=== PATIENT | male | born 1980 | race Caucasian/White ===

== ENCOUNTER → 2016-11-08 | Outpatient (CLI) | payer OTHER | LOC: RAD 08:03 | PROVIDERS: ATTEND Physician Assistant | DX: M23.52 Chronic instability of knee, left knee (principal); M23.51 Chronic instability of knee, right knee ==

== ENCOUNTER 2018-05-08 23:05 | Emergency (ER) | payer OTHER ==
[2018-05-08 23:16] VITALS: BP 144/98
== END 2018-05-09 00:10 | disposition left against medical advice (07) ==
LOC: ER 23:05
DX: Z53.21 Procedure and treatment not carried out due to patient leaving prior to being seen by health care provider (principal)

== ENCOUNTER 2019-03-03 22:28 | Emergency (ER) ==
[2019-03-03 22:54] VITALS: BP 148/93
== END 2019-03-03 23:27 | disposition left against medical advice (07) ==
LOC: ER 22:28
DX: Z53.21 Procedure and treatment not carried out due to patient leaving prior to being seen by health care provider (principal)

== ENCOUNTER 2019-03-06 21:40 | Emergency (ER) | payer OTHER ==
[2019-03-06 22:34] LABS: ABSOLUTE BASOPHILS # (AUTO) 0.1 10^3/uL (0.0-0.2); ABSOLUTE EOSINOPHILS # (AUTO) 0.3 10^3/uL (0.0-0.6); ABSOLUTE LYMPHOCYTES (AUTO) 2.3 10^3/uL (0.5-4.7); ABSOLUTE MONOCYTES (AUTO) 0.7 10^3/uL (0.1-1.4); ABSOLUTE NEUT (AUTO) 4.2 10^3/uL (1.7-8.2); BASOPHILS % (AUTO) 1.2 % (0-2); EOSINOPHILS % (AUTO) 3.4 % (0-6); HEMATOCRIT 44.2 % (37.9-51.0); HEMOGLOBIN 15.4 g/dL (13.5-17.0); LYMPHOCYTES % (AUTO) 30.8 % (13-45); MEAN CORPUSCULAR HEMOGLOBIN 29.5 pg (27.0-33.4); MEAN CORPUSCULAR HGB CONC 34.7 g/dL (32.0-36.0); MEAN CORPUSCULAR VOLUME 85 fl (80-97); MONOCYTES % (AUTO) 8.6 % (3-13); PLATELET COUNT 298 10^3/uL (150-450); RED BLOOD COUNT 5.21 10^6/uL (4.35-5.55); RED CELL DISTRIBUTION WIDTH 13.1 % (11.5-14.0); TOTAL CELLS COUNTED % (AUTO) 100 %; WHITE BLOOD COUNT 7.5 10^3/uL (4.0-10.5)
[2019-03-06 22:38] LABS: APPEARANCE,URINE SLIGHTLY-CLOUDY; BILIRUBIN,URINE NEGATIVE (NEGATIVE); COLOR,URINE YELLOW; GLUCOSE, URINE NEGATIVE (NEGATIVE); KETONES,URINE NEGATIVE (NEGATIVE); LEUKOCYTE ESTERASE,URINE NEGATIVE (NEGATIVE); NITRITE,URINE NEGATIVE (NEGATIVE); PROTEIN,URINE NEGATIVE (NEGATIVE); URINE SPECIFIC GRAVITY 1.023; UROBILINOGEN,URINE NEGATIVE mg/dL (<2.0)
[2019-03-06 22:52] LABS: ALANINE AMINOTRANSFERASE 33 U/L (21-72); ALBUMIN 4.9 g/dL (3.5-5.0); ALKALINE PHOSPHATASE 69 U/L (38-126); ANION GAP 12 (5-19); ASPARTATE AMINO TRANSFERASE 28 U/L (17-59); BILIRUBIN,DIRECT 0.4 mg/dL (0.0-0.4); BILIRUBIN,TOTAL 0.8 mg/dL (0.2-1.3); BLOOD UREA NITROGEN 20 mg/dL (7-20); CALCIUM 10.3 mg/dL (8.4-10.2); CARBON DIOXIDE 27 mmol/L (22-30); CHLORIDE 101 mmol/L (98-107); GLUCOSE 95 mg/dL (75-110); POTASSIUM 4.6 mmol/L (3.6-5.0); SODIUM 139.9 mmol/L (137-145); TOTAL PROTEIN 8.2 g/dL (6.3-8.2)
[2019-03-07] MEDS ORDERED: KETOROLAC TROMETHAMINE 60 MG/2 ML SDV IM ONE (01:51)
[2019-03-07] MEDS ORDERED: LIDOCAINE 5% (700 MG) TRANSDERMAL ADH..PATCH TP ONE (01:51)
--- NOTE | 2019-03-07 01:52 | ER Document Report ---
ED General - General Chief Complaint: Low Back Pain Stated Complaint: Right low back pain Time Seen by Provider: 03/06/19 23:50 Primary Care Provider: ODILIA,LISA [Primary Care Provider] - Follow up as needed Notes: Patient is a 38-year-old male with a past medical history of chronic low back pain who presents with an exacerbation of his low back pain. Patient describes the pain as being a throbbing, constant, severe pain to his right low back that radiates into his right buttock and down his right leg. The pain into his right leg is a shooting, burning pain. Regards the pain is being severe. Worsened by standing or walking. Has been taking Percocet and ibuprofen with minimal improvement of the pain. Has seen his primary care doctor regarding this issue and is scheduled to have additional imaging in the coming weeks. He denies any bowel or bladder incontinence, urinary retention, inability to ambulate, focal weakness, numbness, or loss of sensation. Nothing is new or different regarding the pain tonight except he states he feels like he could not get under control with his normal medications. Denies fever, history of IV drug use or history of malignancy. TRAVEL OUTSIDE OF THE [place] IN LAST 30 DAYS: No - Related Data Allergies/Adverse Reactions: tramadol Allergy (Verified 03/06/19 21:45) Seizures Fresh Fruit Allergy (Severe, Uncoded 03/06/19 21:45) Anaphylaxis Past Medical History - General Information source: Patient - Social History Smoking Status: Never Smoker Frequency of alcohol use: None Drug Abuse: None Lives with: Spouse/Significant other Family History: Arthritis, Hypertension, Malignancy Patient has suicidal ideation: No Patient has homicidal ideation: No Renal/ Medical History: Denies: Hx Peritoneal Dialysis GI Medical History: Reports: Hx Gastroesophageal Reflux Disease Musculoskeletal Medical History: Reports Hx Arthritis, Reports Hx Musculoskeletal Deformity, Reports Hx Musculoskeletal Trauma Past Surgical History: Reports: Hx Appendectomy, Hx Orthopedic Surgery - left shoulder - Immunizations Immunizations up to date: Yes Hx Diphtheria, Pertussis, Tetanus Vaccination: Yes Review of Systems - Review of Systems Notes: Constitutional: Negative for fever. HENT: Negative for sore throat. Eyes: Negative for visual changes. Cardiovascular: Negative for chest pain. Respiratory: Negative for shortness of breath. Gastrointestinal: Negative for abdominal pain, vomiting or diarrhea. Genitourinary: Negative for dysuria. Musculoskeletal: Positive for low back pain, right leg pain Skin: Negative for rash. Neurological: Negative for headaches, weakness or numbness. 10 point ROS negative except as marked above and in HPI. Physical Exam - Vital signs Vitals: Temp Pulse Resp BP Pulse Ox 98.0 F 76 20 148/105 H 97 03/06/19 22:05 03/06/19 22:05 03/06/19 22:05 03/06/19 22:05 03/06/19 22:05 Interpretation: Hypertensive Notes: PHYSICAL EXAMINATION: GENERAL: Well-appearing, well-nourished and in no acute distress. HEAD: Atraumatic, normocephalic. EYES: Pupils equal round and reactive to light, extraocular movements intact, sclera anicteric, conjunctiva are normal. ENT: nares patent, oropharynx clear without exudates. Moist mucous membranes. NECK: Normal range of motion, supple without lymphadenopathy LUNGS: Breath sounds clear to auscultation bilaterally and equal. No wheezes rales or rhonchi. HEART: Regular rate and rhythm without murmurs ABDOMEN: Soft, nontender, normoactive bowel sounds. No guarding, no rebound. No masses appreciated. EXTREMITIES: Normal range of motion, no pitting or edema. No cyanosis. Back: No midline spinal tenderness, step-offs or deformities. Pain on palpation of the paraspinous muscles on the right low back NEUROLOGICAL: 5 out of 5 strength both distally and proximally bilateral lower extremities. 2+ patellar reflexes bilaterally. No clonus. Sensation grossly intact in the bilateral lower extremities. Patient is able to ambulate without difficulty. PSYCH: Normal mood, normal affect. SKIN: Warm, Dry, normal turgor, no rashes or lesions noted. Course - Re-evaluation Re-evalutation: 03/07/19 01:51 Presentation of a well appearing patient complaining of acute on chronic back pain with sciatica into the right lower extremity. No rapid progression of symptoms, systemic symptoms including fevers, chills, weight loss, history of recent bacterial infection, bilateral symptoms, numbness, weakness, difficulty walking, urinary retention or bowel incontinence, personal history of cancer, immunosuppression, diabetes, known AAA, or history of IV drug use. Exam is without point tenderness over vertebral bodies, pulsatile abdominal mass, and patient has symmetric and intact lower extremity strength, sensation, and reflexes without clonus. 2+ symmetric medial malleolar and dorsalis pedis pulses Based on history and physical, I have a very low suspicion of a concerning etiology of pain including epidural compression syndrome, spinal infection, transverse myelitis, malignancy, abdominal aortic aneurysm, renal colic, acute lower extremity claudication, neurogenic claudication, ankylosing spondylitis, or other intra-abdominal process. Due to absence of concerning risk factors in history and physical as well as absence of rapidly progressive, severe, or bilateral symptoms, will defer imaging at this point. Plan to manage conservatively with outpatient analgesia, analgesia, and physical therapy. - Acetaminophen 650 q 4 + ibuprofen 600 q 6 - Continue normal daily activities as tolerated by pain - Provide with standard musculoskeletal back pain exercise instructions - Instruct to follow up with primary care provider if symptoms not improving - Provide careful return precautions and concerning symptoms to watch for. - Vital Signs Vital signs: Temp Pulse Resp BP Pulse Ox 97.5 F 58 L 17 167/95 H 97 03/07/19 02:22 03/07/19 02:22 03/07/19 02:22 03/07/19 02:22 03/07/19 02:22 - Laboratory Result Diagrams: 03/06/19 22:16 03/06/19 22:16 Laboratory results interpreted by me: 03/06/19 22:16 Calcium 10.3 H Discharge - Discharge Clinical Impression: Right low back pain Qualifiers: Chronicity: chronic Sciatica presence: with sciatica Sciatica laterality: sciatica of right side Qualified Code(s): M54.41 - Lumbago with sciatica, right side Condition: Good Disposition: HOME, SELF-CARE Additional Instructions: You have been seen in the Emergency Department (ED) today for back pain. Your workup and exam have not shown any acute abnormalities and you are likely suffering from muscle strain or possible problems with your discs, but there is no treatment that will fix your symptoms at this time. Please continue to take the medications that you have available at home as prescribed. You should also purchase a local lidocaine cream such as "aspercreme with lidocaine" and use per bottle instructions to the affected area. Apply heat to the area as often as you are able. Continue to keep active and avoid prolonged periods of bed rest. Please follow up with your doctor as soon as possible regarding today's ED visit and your back pain. Return to the ED for worsening back pain, fever, weakness or numbness of either leg, or if you develop either (1) an inability to urinate or have bowel movements, or (2) loss of your ability to control your bathroom functions (if you start having "accidents"), or if you develop other new symptoms that concern you.concern you. Referrals: [facility] [Primary Care Provider] - Follow up as needed
[2019-03-07 02:23] VITALS: BP 167/95
== END 2019-03-07 02:23 | disposition home or self-care (01) ==
LOC: ER 21:40
DX: M54.41 Lumbago with sciatica, right side (principal)
CPT/HCPCS: 99283; 96372; 36415; 83690; 85025; 80053; 81001; J1885

== ENCOUNTER 2020-09-21 07:07 | Emergency (ER) | payer OTHER ==
[2020-09-21 09:12] LABS: ABSOLUTE BASOPHILS # (AUTO) 0.1 10^3/uL (0.0-0.2); ABSOLUTE EOSINOPHILS # (AUTO) 0.3 10^3/uL (0.0-0.6); ABSOLUTE LYMPHOCYTES (AUTO) 1.4 10^3/uL (0.5-4.7); ABSOLUTE MONOCYTES (AUTO) 0.5 10^3/uL (0.1-1.4); ABSOLUTE NEUT (AUTO) 4.2 10^3/uL (1.7-8.2); BASOPHILS % (AUTO) 1.2 % (0-2); HEMATOCRIT 41.9 % (37.9-51.0); HEMOGLOBIN 14.3 g/dL (13.5-17.0); LYMPHOCYTES % (AUTO) 21.5 % (13-45); MEAN CORPUSCULAR HEMOGLOBIN 29.4 pg (27.0-33.4); MEAN CORPUSCULAR HGB CONC 34.2 g/dL (32.0-36.0); MEAN CORPUSCULAR VOLUME 86 fl (80-97); MONOCYTES % (AUTO) 7.9 % (3-13); PLATELET COUNT 273 10^3/uL (150-450); RED BLOOD COUNT 4.88 10^6/uL (4.35-5.55); RED CELL DISTRIBUTION WIDTH 13.7 % (11.5-14.0); SEGMENTED NEUTROPHILS % (AUTO) 65.4 % (42-78); TOTAL CELLS COUNTED % (AUTO) 100 %; WHITE BLOOD COUNT 6.5 10^3/uL (4.0-10.5)
[2020-09-21 09:28] LABS: ANION GAP 6 (5-19)
[2020-09-21 09:35] LABS: ALBUMIN 4.4 g/dL (3.5-5.0); ALKALINE PHOSPHATASE 69 U/L (38-126); ASPARTATE AMINO TRANSFERASE 35 U/L (17-59); BILIRUBIN,DIRECT 0.1 mg/dL (0.0-0.4); BILIRUBIN,TOTAL 0.7 mg/dL (0.2-1.3); BLOOD UREA NITROGEN 19 mg/dL (7-20); CALCIUM 9.8 mg/dL (8.4-10.2); CARBON DIOXIDE 31 mmol/L (22-30); CHLORIDE 102 mmol/L (98-107); GLUCOSE 100 mg/dL (75-110); POTASSIUM 4.6 mmol/L (3.6-5.0); TOTAL PROTEIN 7.7 g/dL (6.3-8.2)
[2020-09-21] MEDS ORDERED: ONDANSETRON HCL INJ/PF 4 MG/2 ML SDV IV ONE (10:16)
[2020-09-21] MEDS ORDERED: MORPHINE SULFATE 10 MG/ML INJ IV ONE (10:16)
[2020-09-21] MEDS ORDERED: KETOROLAC TROMETHAMINE INJ/PF 30 MG/1 ML SDV IV ONE (10:17)
--- NOTE | 2020-09-21 10:24 | ER Document Report ---
ED Fall - General Chief Complaint: Fall Injury Stated Complaint: FALL/BACK PAIN Time Seen by Provider: 09/21/20 10:05 Primary Care Provider: LIA MYERS MD [Primary Care Provider] - Follow up as needed Mode of Arrival: Ambulatory Information source: Patient, Relative Notes: Patient is a 39-year-old male comes emergency room complaining of low back pain after sustaining a slip and fall at home around 530 this morning. Patient states he missed a step and fell backwards landing on his back on the lip of a step. He complains of pain in the left lower back off to the side of the spinal column. Patient denies any other injuries. He has no loss of consciousness or head trauma. Patient was ambulatory afterwards. He has a history of back fusion 3 years ago. He denies any loss of urine or stool. After surgery patient states he did lose some sensation in the right leg but it was minimal. And he only takes psych medications for depression. Patient does not smoke. Patient does take 5 mg of Percocet for his back on a regular basis but has not taken any today. TRAVEL OUTSIDE OF THE [place] IN LAST 30 DAYS: No - HPI Occurred: This morning Where: Home Context: Slipped, Fell from standing Associated symptoms: None Location of injury/pain: Back Quality of pain: Achy, Sharp Severity: Moderate Pain Level: 3 - Related data Allergies/Adverse Reactions: tramadol Allergy (Verified 03/06/19 21:45) Seizures Fresh Fruit Allergy (Severe, Uncoded 03/06/19 21:45) Anaphylaxis Past Medical History - General Information source: Patient - Social History Smoking Status: Never Smoker Chew tobacco use (# tins/day): No Frequency of alcohol use: None Drug Abuse: None Lives with: Family Family History: Arthritis, Hypertension, Malignancy Renal/ Medical History: Denies: Hx Peritoneal Dialysis GI Medical History: Reports: Hx Gastroesophageal Reflux Disease Musculoskeletal Medical History: Reports Hx Arthritis, Reports Hx Musculoskeletal Deformity, Reports Hx Musculoskeletal Trauma Past Surgical History: Reports: Hx Appendectomy, Hx Orthopedic Surgery - left shoulder - Immunizations Immunizations up to date: Yes Hx Diphtheria, Pertussis, Tetanus Vaccination: Yes Review of Systems - Review of Systems Constitutional: No symptoms reported EENT: No symptoms reported Cardiovascular: No symptoms reported Respiratory: No symptoms reported Gastrointestinal: No symptoms reported Genitourinary: No symptoms reported Male Genitourinary: No symptoms reported Musculoskeletal: See HPI, Back pain Skin: No symptoms reported Hematologic/Lymphatic: No symptoms reported Neurological/Psychological: No symptoms reported -: Yes All other systems reviewed and negative Physical Exam - Vital signs Vitals: Temp Pulse Resp BP Pulse Ox 97.7 F 61 20 132/73 H 95 09/21/20 07:13 09/21/20 07:13 09/21/20 07:13 09/21/20 07:13 09/21/20 07:13 Interpretation: Hypertensive - Notes Notes: PHYSICAL EXAMINATION: GENERAL: Patient is well-nourished well-developed 39-year-old male no apparent distress but does appear somewhat uncomfortable. HEAD: Atraumatic, normocephalic. EYES: Pupils equal round and reactive to light, extraocular movements intact, sclera anicteric, conjunctiva are normal. ENT: Nares patent, oropharynx clear without exudates. Moist mucous membranes. NECK: Normal range of motion, supple without lymphadenopathy LUNGS: Breath sounds clear to auscultation bilaterally and equal. No wheezes rales or rhonchi. HEART: Regular rate and rhythm without murmurs ABDOMEN: Soft, nontender, nondistended abdomen. No guarding, no rebound. No masses appreciated. Musculoskeletal: Examination of patient's area concern is his low back. Visualization of the area does not show any signs of ecchymosis or abrasion at this time. Patient has mild tenderness to palpation on the right lateral side of the lumbar spine area. There is no tenderness to palpation on the spine itself. As stated there is no discoloration. Further evaluation shows patient has positive straight leg raise on the right to about 5 degrees and also has loss of strength when raising the leg against gravity on his own. 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 The left side is much improved on from the right however he still has some discomfort and pain on the right side when he lifts his left leg. Further evaluation shows patient sensation is slightly decreased on his right side although he does state that he has not had a loss of sensation before and does not appear to be any new onset of worsening of that problem. DTRs in a sitting position shows normal at this time. Vascular examination also shows good distal dorsalis pedal pulses and posterior tibial pulses as well as good femoral pulses. There is no sign of saddle paresthesia out of the unusual for him. Unable to fully examine patient's walk secondary to discomfort. NEUROLOGICAL: Normal speech, normal gait. Normal sensory, motor exams PSYCH: Normal mood, normal affect. SKIN: Warm, Dry, normal turgor, no rashes or lesions noted. Course - Re-evaluation Re-evalutation: 09/21/20 13:01 Reexamination shows patient's still has the same sensation he did when he first came in. Slight decrease on the right side however that is his baseline according to patient. Patient CT does show that he has acute minimally displaced fractures of the right L2 and L3 transverse processes. There is no acute fracture or dislocation of the lumbar spine and he has had decompressive laminectomy at L4 no significant spinal stenosis noted. Given that I did discuss the case with Dr. Collazo and he agrees that this tends patient is already in pain management ice down the area anti-inflammatories will also help with the discomfort and pain and is to follow-up with his surgeon that did the laminectomy. Patient informs me this is the [facility] so he will contact them first thing Tuesday morning. He did get relief with the morphine and the Toradol. Currently is taking Percocet 5 on a as needed basis and he will continue with that as previously ordered by pain management. - Vital Signs Vital signs: Temp Pulse Resp BP Pulse Ox 97.7 F 61 20 132/73 H 95 09/21/20 07:13 09/21/20 07:13 09/21/20 07:13 09/21/20 07:13 09/21/20 07:13 - Laboratory Results Result Diagrams: 09/21/20 08:55 09/21/20 08:55 Laboratory Results Interpreted: 09/21/20 08:55 Carbon Dioxide 31 H Critical Laboratory Results Reviewed: No Critical Results - Radiology Results Critical Radiology Results Reviewed: Yes Attending or Supervising Physician who Reviewed Radiology: MIREYA COLLAZO - Transverse process fracture Discharge - Discharge Clinical Impression: Multiple transverse process fractures Back pain Qualifiers: Back pain location: low back pain Chronicity: acute Back pain laterality: right Sciatica presence: without sciatica Qualified Code(s): M54.5 - Low back pain Condition: Stable Disposition: HOME, SELF-CARE Instructions: Transverse Process Fracture ([facility]) Additional Instructions: As we discussed you do have an surgeon at the [place] you can contact them tomorrow to inform them of the findings have given you a copy of your CT report you can take ibuprofen 800 mg 3 times a day and continue your pain medication as prescribed by your doctor. Ice is your best friend for the next 48 hours. As we discussed do not sit in a whirlpool or use a heating pad least for 72 hours. You can take a shower this will not bother it. Should you have any concerns or problems or should you have any loss of urine or stool or other concerns you can return to ER for reevaluation. Prescriptions: Methocarbamol [Robaxin 750 mg Tablet] 750 mg PO ASDIR PRN #30 tablet PRN Reason: Forms: Elevated Blood Pressure, Return to Work Referrals: LIA MYERS MD [Primary Care Provider] - Follow up as needed
[2020-09-21 12:08] LABS: APPEARANCE,URINE CLEAR; BILIRUBIN,URINE NEGATIVE (NEGATIVE); COLOR,URINE YELLOW; GLUCOSE, URINE NEGATIVE (NEGATIVE); KETONES,URINE NEGATIVE (NEGATIVE); LEUKOCYTE ESTERASE,URINE NEGATIVE (NEGATIVE); NITRITE,URINE NEGATIVE (NEGATIVE); PROTEIN,URINE NEGATIVE (NEGATIVE); URINE SPECIFIC GRAVITY 1.011; UROBILINOGEN,URINE NEGATIVE mg/dL (<2.0)
--- NOTE | 2020-09-21 12:32 | RADIOLOGY REPORT (SQ) ---
EXAM DESCRIPTION: CT LUMBAR SPINE WITHOUT IMAGES COMPLETED DATE/TIME: 09/21/2020 10:59 am REASON FOR STUDY: back pain COMPARISON: Lumbar spine radiograph, 02/18/2016. MRI lumbar spine, 03/31/2015. TECHNIQUE: Axial images acquired through the lumbar spine without intravenous contrast. Images revi ewed with lung, soft tissue and bone windows. Reconstructed coronal and sagittal MPR images reviewed . All images stored on PACS. All CT scanners at this facility use dose modulation, iterative reconstruction, and/or weight based d osing when appropriate to reduce radiation dose to as low as reasonably achievable (ALARA). [facility]: Dose Right [facility]: CareDose [facility]: Dose Right [facility]: Teradose 4D [facility]: [employer] RADIATION DOSE: CT Rad equipment meets quality standard of care and radiation dose reduction techniq ues were employed. CTDIvol: 36.2 mGy. DLP: 1425 mGy-cm. mGy. LIMITATIONS: None. FINDINGS: SEGMENTATION: Lumbarization of the S1 segment. ALIGNMENT: Normal. VERTEBRAL BODIES: No vertebral body fracture or loss of vertebral body height. No lytic or blastic b one lesion. Small subchondral cysts at the superior endplate L5 consistent with chronic degenerative change, stable. DISCS: Mild degenerative disc disease with mild loss of intervertebral disc height. Calcification of the disc annulus at L4-L5. Decompressive laminectomy at L4-5. PEDICLES, TRANSVERSE PROCESSES: There are acute fractures of the right L2 and L3 transverse processes . No significant displacement. FACETS, POSTERIOR ELEMENTS: Laminectomy at L4. No acute fracture. Pedicles are intact. No displace ment. HARDWARE: None in the spine. VISUALIZED RIBS: No fractures. SOFT TISSUES: No significant or acute finding in adjacent soft tissues. OTHER: No other significant finding. IMPRESSION: 1. Acute minimally displaced fractures of the right L2 and L3 transverse processes. 2. No acute fracture or dislocation of the lumbar spine. 3. Decompressive laminectomy at L4. No significant spinal canal stenosis. TECHNICAL DOCUMENTATION: JOB ID: [id number] Quality ID # [id number]: Final reports with documentation of one or more dose reduction techniques (e.g., Au tomated exposure control, adjustment of the mA and/or kV according to patient size, use of iterative reconstruction technique) 2010 [employer]- All Rights Reserved Reading location - IP/workstation name: [email or web address]
[2020-09-21 13:34] VITALS: BP 141/91
== END 2020-09-21 13:34 | disposition home or self-care (01) ==
LOC: ER 07:07
DX: S32.028A Other fracture of second lumbar vertebra, initial encounter for closed fracture (principal); S32.038A Other fracture of third lumbar vertebra, initial encounter for closed fracture; Y92.008 Other place in unspecified non-institutional (private) residence as the place of occurrence of the external cause; W10.9XXA Fall (on) (from) unspecified stairs and steps, initial encounter; R20.8 Other disturbances of skin sensation; F32.9 Major depressive disorder, single episode, unspecified; Z79.899 Other long term (current) drug therapy; Z79.891 Long term (current) use of opiate analgesic; Z98.1 Arthrodesis status; Z88.6 Allergy status to analgesic agent; Z91.018 Allergy to other foods; Z87.892 Personal history of anaphylaxis
CPT/HCPCS: 99285; 96374; 96375; 36415; 87086; 85025; 80053; 81001; 72131; J1885; J2270; J2405